=== PATIENT | male | born 1995 | race Two or more races ===

== ENCOUNTER 2022-10-08 16:45 | Emergency (ER) | payer MEDICAID, OTHER ==
[~2022-10-08] VITALS: Ht 177.8 cm; Wt 63.5 kg
[2022-10-08] MEDS ORDERED: LEVETIRACETAM (250 MG) 250 MG TABLET PO ONE ×2 (17:13→17:30)
[2022-10-08] MEDS ORDERED: IV NS 0.9% 1,000 ML BAG IV ONE (17:30)
[2022-10-08 18:42] VITALS: BP 121/79
== END 2022-10-08 18:43 | disposition home or self-care (01) ==
LOC: EDSEX 17:01 → ER 17:01
DX: G40.909 Epilepsy, unspecified, not intractable, without status epilepticus (principal)
CPT/HCPCS: 99283; 96360; 82962; J7030